=== PATIENT | female | born 1935 | race Two or more races ===

== ENCOUNTER 2018-09-07 13:18 | Outpatient (CLI) | payer MEDICARE, OTHER ==
[~2018-09-07] VITALS: Ht 152.4 cm; Wt 77.1 kg
[~2018-09-07 13:18] MED LIST: ASPIRIN-LOW81 MG ORAL; CALCIUM 500 MG1 EACH PO; COZAAR50 MG ORAL; CRESTOR10 M2 ORAL; PREVACID30 MG ORAL; SLOW-MAG64 MG PO; VITAMIN D1000 UNI1 ORAL
--- NOTE | 2018-09-07 15:16 | GI Initial Consult Note ---
History of Present Illness General Date patient seen: Sep 07, 2018 Time patient seen: 15:10 Referring physician: JESSICA Reason for Consultation: ELEVATED CEA Present Illness HPI This is a 82-year-old female patient, presents today with an elevated CEA level of 4.02. In addition the patient has complaint of weight loss which she contributes to the passing of her brother back in 2018. The patient denies any GI symptoms; denies any abdominal pain, nausea vomiting or diarrhea at this time. Patient has no history of endoscopic or colonoscopy. Denies any changes in dietary habits. No signs of abuse or neglect. Patient is not fall risk. Home Meds Reported Medications Magnesium Chloride (Slow-Mag) 64 Mg Tabcr, 64 MG PO DAILY, TAB 08/24/13 Cholecalciferol (Vitamin D3)* (VITAMIN D*) 1,000 Unit Tablet, 5000 UNITS ORAL ONCE A WEEK, TAB 0 Refills 08/24/13 Calcium Carb&Cit/Mag12/Vit D3 (CALCIUM 500 MG TABLET) 1 Each Tablet, 1 EACH PO DAILY, TAB 08/24/13 Aspirin (Aspirin EC) 81 Mg Tabec, 81 MG ORAL DAILY, TAB 08/24/13 Rosuvastatin Calcium* (CRESTOR*) 10 Mg Tablet, 10 MG ORAL DAILY, TAB 08/24/13 Losartan Potassium* (COZAAR*) 50 Mg Tablet, 50 MG ORAL DAILY, TAB 08/24/13 Lansoprazole* (PREVACID*) 30 Mg Capsule.dr, 30 MG ORAL DAILY, CAP 08/24/13 Med list reviewed/reconciled: Yes Allergies: Coded Allergies: NO KNOWN ALLERGIES (Unverified Allergy, 08/23/13) Patient History History Provided By: Patient, Medical Record [facility] Narrative GERD Asthma Arthritis Sciatic pain Back pain Hypertension Hyperlipidemia Past surgical history Bilateral cataract surgery Vaginal prolapse? Pertinent Family History: none Social History: Denies: smoking, alcohol use, drug use, other Review of Systems All Other Systems: negative except mentioned in HPI Physical Exam Temperature 97.6 Blood pressure 116/66 Pulse of 63 90% room air Height 5 0 Weight 170 pounds Sp02 EP Interpretation: reviewed, normal General Appearance: well appearing, no apparent distress, alert Head: normocephalic EENT: PERRL/EOMI, normal ENT inspection Neck: supple Respiratory: normal breath sounds, no respiratory distress Cardiovascular: normal rate Gastrointestinal: normal inspection, non tender, soft, normal bowel sounds, non -distended Rectal: deferred Genitourinary: no CVA tenderness Musculoskeletal: normal inspection, back normal Neurologic: normal inspection, alert, oriented x3, responsive Psychiatric: normal inspection, judgement/insight normal, memory normal Skin: normal inspection, normal color, no rash, warm/dry, palpation normal, well hydrated Lymphatic: normal inspection, no adenopathy GI: Plan Problems: (1) GERD (gastroesophageal reflux disease) (2) Elevated CEA (3) Colonoscopy planned (4) Weight loss (5) Asthma (6) Arthritis (7) Sciatic pain (8) Hypertension (9) Hyperlipidemia Plan EGD/colonoscopy to be scheduled September 11, 2017 - CLD & (Nulytely/Suprep/Movi-Prep) prep instructions given and acknowledged by patient. - NPO @ [place] day prior procedure explained. Will follow with additional recs post procedure. Seen with Dr. Giordano. Thank you for this patient referral. The patient was seen and examined at bedside and all new and available data was reviewed in the patients chart. I agree with the above findings, impression and plan. (Patient seen earlier today. Signature stamp does not reflect patient encounter time.). - MD Anny Rodríguez AnhLisa NICKEL PLATER Sep 07, 2018 15:16
[2018-09-07 15:44] VITALS: BP 116/66
== END 2018-09-07 15:18 | disposition home or self-care (01) ==
LOC: PAN 13:18
DX: R97.0 Elevated carcinoembryonic antigen [CEA] (principal); K21.9 Gastro-esophageal reflux disease without esophagitis; R63.4 Abnormal weight loss; J45.909 Unspecified asthma, uncomplicated; M19.92 Post-traumatic osteoarthritis, unspecified site; M54.30 Sciatica, unspecified side; I10 Essential (primary) hypertension; E78.5 Hyperlipidemia, unspecified
CPT/HCPCS: 99202

== ENCOUNTER 2018-09-11 07:47 | Day surgery (SDC) | payer MEDICARE, OTHER ==
[2018-09-11] VITALS (9 sets, daily range): BP systolic 129–194; BP diastolic 74–109
[~2018-09-11] VITALS: Ht 157.5 cm; Wt 77.1 kg
[2018-09-11] MEDS ORDERED: Lidocaine 1% MPF 10mg/ml 5ml ONE (09:00)
[2018-09-11] MEDS ORDERED: LR 1000ml ONE (09:00)
[2018-09-11] MEDS ORDERED: Propofol 200mg/20ml IV ONE (09:00)
[2018-09-11] MEDS ORDERED: LR 1000ml 1,000 ML IVLG SCH (09:01)
--- NOTE | 2018-09-11 09:02 | Pre-Procedure Note/Attestation ---
Pre-Procedure Note/Attestation Complete Prior to Procedure Planned Procedure: not applicable Procedure Narrative: egd/colonoscopy Indications for Procedure Pre-Operative Diagnosis: screening colon, GERD Attestation I attest that I discussed the nature of the procedure; its benefits; risks and complications; and alternatives (and the risks and benefits of such alternatives ), prior to the procedure, with the patient (or the patient's legal sales representative health insurance). I attest that, if there was a reasonable possibility of needing a blood transfusion, the patient (or the patient's legal sales representative health insurance) was given the [facility] standardized written summary, pursuant to the Teddy Shad Blood Safety Act ([place] Health and Safety Code # 1645, as amended). I attest that I re-evaluated the patient just prior to the surgery and that there has been no change in the patient's H&P, except as documented below: Usman Giordano MD Sep 11, 2018 09:02
--- NOTE | 2018-09-11 09:02 | Short Stay Surgery H&P ---
History of Present Illness History of Present Illness Chief Complaint see recent office note HPI Francia Barnes is a 82 year old female who was admitted on for Abdominal Pain Patient History Allergies: Coded Allergies: NO KNOWN ALLERGIES (Unverified Allergy, 08/23/13) Medication History Scheduled Aspirin (Aspirin EC), 81 MG ORAL DAILY, (Reported) Cholecalciferol (Vitamin D3)* (Vitamin D*), 5,000 UNITS ORAL ONCE A WEEK, ( Reported) Lansoprazole* (Prevacid*), 30 MG ORAL DAILY, (Reported) Losartan Potassium* (Cozaar*), 50 MG ORAL DAILY, (Reported) Rosuvastatin Calcium* (Crestor*), 10 MG ORAL DAILY, (Reported) Discontinued Medications Calcium Carb&Cit/Mag12/Vit D3 (Calcium 500 Mg Tablet), 1 EACH PO DAILY, ( Reported) Discontinued Reason: Pt stopped taking med Magnesium Chloride (Slow-Mag), 64 MG PO DAILY, (Reported) Discontinued Reason: Pt stopped taking med Physical Exam Vital Signs Last Vital Signs Date Time Temp Pulse Resp B/P (MAP) Pulse Ox O2 Delivery O2 Flow Rate FiO2 09/11/18 08:21 Room Air 09/11/18 08:19 98.1 69 18 129/74 97 Plan Attestation Are the patient's medical conditions optimized for surgery? Usman Giordano MD Sep 11, 2018 09:02
[2018-09-11] MEDS ORDERED: Ketorolac 30mg Inj IV PRN ×2 (09:15)
[2018-09-11] MEDS ORDERED: Meperidine 50mg/ml Inj(FOR RIGORS ONLY) IVP PRN (09:15)
[2018-09-11] MEDS ORDERED: Midazolam 2mg/2ml Inj IVP PRN (09:15)
[2018-09-11] MEDS ORDERED: HYDROcodone/Acetamin 5/325 tab ORAL PRN (09:15)
[2018-09-11] MEDS ORDERED: oxyCODONE HCL/Acetaminophen 5/325mg ORAL PRN (09:15)
[2018-09-11] MEDS ORDERED: HYDROcodone/Acetamin 7.5/325 tab ORAL PRN (09:15)
[2018-09-11] MEDS ORDERED: DiphenhydrAMINE 50mg/ml Inj IVP PRN (09:15)
[2018-09-11] MEDS ORDERED: Hydromorphone 0.5mg/0.5ml inj IVP PRN (09:15)
[2018-09-11] MEDS ORDERED: Metoclopramide 10mg/2ml Inj IVP PRN (09:15)
[2018-09-11] MEDS ORDERED: fentaNYL 100 mcg/2 mL IV PRN (09:15)
[2018-09-11] MEDS ORDERED: LORazepam Inj 2mg/ml 1ml IV PRN (09:15)
[2018-09-11] MEDS ORDERED: Atropine Sulfate 0.4mg/ml inj IVP PRN (09:15)
--- NOTE | 2018-09-11 09:23 | Anethesia Preoperative Eval ---
Anesthesia Pre-op PMH/ROS General Date of Evaluation: Sep 11, 2018 Time of Evaluation: 08:41 Anesthesiologist: Fina ASA Score: ASA 3 Mallampati Score Class I : Soft palate, uvula, fauces, pillars visible Class II: Soft palate, uvula, fauces visible Class III: Soft palate, base of uvula visible Class IV: Only hard plate visible Mallampati Classification: Class II Surgeon: Pasquale Diagnosis: Abd Pain Surgical Procedure: EGD/Colonoscopy Anesthesia History: none Family History: no anesthesia problems Allergies: Coded Allergies: NO KNOWN ALLERGIES (Unverified Allergy, 08/23/13) Medications: see eMAR Patient NPO?: Yes Past Medical History Cardiovascular: Reports: HTN, other - HL Pulmonary: Reports: asthma Gastrointestinal/Genitourinary: Reports: GERD HEENT: Reports: cataract (L), cataract (R) Other: obesity - BMI 32 Anesthesia Pre-op Phys. Exam Physician Exam Last Vital Signs Date Time Temp Pulse Resp B/P (MAP) Pulse Ox O2 Delivery O2 Flow Rate FiO2 09/11/18 08:21 Room Air 09/11/18 08:19 98.1 69 18 129/74 97 Constitutional: NAD Neurologic: CN 2-12 intact Cardiovascular: RRR Respiratory: CTA Gastrointestinal: S/NT/ND Airway Exam Mallampati Score: Class II MO: full ROM: limited Teeth: missing, intact Anesthesia Pre-op A/P Risk Assessment & Plan Assessment: ASA 3 Plan: GA Status Change Before Surgery: Barry Lima MD Sep 11, 2018 09:23
--- NOTE | 2018-09-11 09:24 | Immediate Post-Op Evaluation ---
Immediate Post-Op Evalulation Immediate Post-Op Evalulation Procedure: EGD/Colonoscopy Date of Evaluation: Sep 11, 2018 Time of Evaluation: 09:58 IV Fluids: 100 NS Blood Products: 0 Estimated Blood Loss: 1 Urinary Output: 0 Blood Pressure Systolic: 194 Blood Pressure Diastolic: 109 Pulse Rate: 78 Respiratory Rate: 16 O2 Sat by Pulse Oximetry: 97 Temperature (Fahrenheit): 97.9 Pain Score (1-10): 2 Nausea: No Vomiting: No Complications 0 Patient Status: awake, reacts, patent, none Hydration Status: adequate Barry Harden MD Sep 11, 2018 09:24
--- NOTE | 2018-09-11 09:25 | 48 Hour Post Anesthesia Eval ---
Post Anesthesia Evaluation Procedure: EGD/Colonoscopy Date of Evaluation: Sep 11, 2018 Time of Evaluation: 12:03 Blood Pressure Systolic: 157 0: 89 Pulse Rate: 79 Respiratory Rate: 18 Temperature (Fahrenheit): 98.2 O2 Sat by Pulse Oximetry: 96 Airway: patent Nausea: No Vomiting: No Pain Intensity: 2 Hydration Status: adequate Cardiopulmonary Status: Stable Mental Status/LOC: patient returned to baseline Follow-up Care/Observations: 0 Post-Anesthesia Complications: 0 Follow-up care needed: ready to discharge Barry Harden MD Sep 11, 2018 09:25
--- NOTE | 2018-09-11 09:38 | Endoscopy Procedure Note ---
Endoscopy Procedure Note General Indication for Procedure: screening colon, GERD Procedures Performed: EGD, colonoscopy Operative Findings/Diagnosis: gastritis, 3 polyps Specimen: yes Pt Tolerated Procedure Well: Yes Estimated Blood Loss: none Anesthesia Anesthesiologist: Macie Anesthesia: MAC Inserted Devices Implant(s) used?: No Quality Quality of Bowel Preparation: Good Did scope reach the cecum?: Yes Was there any complications?: No GI Core Measures 50 yrs or older w/o bx or poly: No 10yrs. F/U not recommended: Yes If not recommended, why?: Above average risk 10 yrs. F/U needed: Yes 18 years or older w/prev. colo: No Usman Giordano MD Sep 11, 2018 09:38
--- NOTE | 2018-09-11 16:30 | Procedure Note ---
DATE OF PROCEDURE: 09/11/2018 SURGEON: Usman Giordano M.D. PROCEDURE: Upper endoscopy with biopsy and colonoscopy with biopsy. ANESTHESIA: Per Dr. Harden. INSTRUMENT: Olympus adult flexible endoscope and colonoscope. INDICATION: 1. Screening colonoscopy evaluation. 2. Abdominal pain. 3. Chronic GERD. REASON FOR PROCEDURE: The procedure, risks, benefits, and possible consequences, including hemorrhage, aspiration, perforation and infection, and alternative treatments, were explained to the patient/legal guardian by Dr. Usman Giordano and the patient/legal guardian understood and accepted these risks. PROCEDURE IN DETAIL: After informed consent was obtained and the patient was adequately sedated, Olympus upper endoscope was advanced from the mouth to the second portion of the duodenum and retroflexion was performed in the stomach. The patient has diffuse gastritis. Random biopsy from body and antrum was obtained to rule out H. pylori infection. Otherwise, the rest of upper endoscopic examination grossly within normal limits. At this time, the upper endoscope was retrieved. The patient was turned over for colonoscopy. First, rectal exam was performed which was positive for internal hemorrhoids. Then, the scope was advanced from the rectum into the cecum documented by the appendiceal orifice, ileocecal valve, and right upper quadrant palpation. Quality of prep was very good. The patient had three colonic polyps, one in transverse, two in the rectosigmoid area, all were small, removed with the cold biopsy forceps technique. The patient had some scattered diverticulosis in the left colon. Retroflexion of the rectum showed evidence of medium-sized nonbleeding internal hemorrhoids. SUMMARY OF FINDINGS: 1. Gastritis, status post biopsy. 2. Three colonic polyps removed, see above for details. 3. Diverticulosis. 4. Internal hemorrhoids. RECOMMENDATIONS: 1. Follow up pathology. 2. Given 3 polyps, we recommend repeat colonoscopy in three years. I want to thank, Dr. Usman Cedillo, for this kind referral. Usman Giordano M.D. DR: Nancy JOB#: [id number] CC: Usman Cedillo M.D.; Fax#: [phone]
== END 2018-09-11 12:35 | disposition home or self-care (01) ==
LOC: GAS 07:47
DX: Z12.11 Encounter for screening for malignant neoplasm of colon (principal); R10.9 Unspecified abdominal pain; K21.9 Gastro-esophageal reflux disease without esophagitis; Z79.82 Long term (current) use of aspirin; I10 Essential (primary) hypertension; K57.90 Diverticulosis of intestine, part unspecified, without perforation or abscess without bleeding; K63.5 Polyp of colon; K64.8 Other hemorrhoids; K29.50 Unspecified chronic gastritis without bleeding; D12.3 Benign neoplasm of transverse colon
CPT/HCPCS: 43239; 45380; 93005; J2704; 94003; 94150

== ENCOUNTER 2018-09-30 13:05 | Outpatient (CLI) | payer MEDICARE, OTHER ==
--- NOTE | 2018-09-30 15:00 | General Progress Note ---
Assessment/Plan Problem List: (1) Constipation ICD Codes: K59.00 - Constipation, unspecified SNOMED: 29064460 (2) Colonic polyp ICD Codes: K63.5 - Polyp of colon SNOMED: 14266357 (3) GERD (gastroesophageal reflux disease) ICD Codes: K21.9 - Gastro-esophageal reflux disease without esophagitis SNOMED: 019917375 (4) Asthma ICD Codes: J45.909 - Unspecified asthma, uncomplicated SNOMED: 538306467 (5) Elevated CEA ICD Codes: R97.0 - Elevated carcinoembryonic antigen [CEA] SNOMED: 310783512 (6) Hypertension ICD Codes: I10 - Essential (primary) hypertension SNOMED: 01174439 Assessment/Plan add low dose linzess repeat colon in 3 years Subjective ROS Limited/Unobtainable: Yes Allergies: Coded Allergies: NO KNOWN ALLERGIES (Unverified Allergy, 08/23/13) Objective General Appearance: alert EENT: normal ENT inspection Neck: supple Cardiovascular: normal rate Respiratory/Chest: lungs clear Abdomen: normal bowel sounds, non tender, soft Extremities: non-tender Usman Giordano MD Sep 30, 2018 15:00
[2018-09-30 15:51] VITALS: BP 114/56
[2018-10-02] MEDS ORDERED: LINZESS 72 MCG ORAL (15:50)
== END 2018-09-30 15:05 | disposition home or self-care (01) ==
LOC: PAN 13:05
DX: K59.00 Constipation, unspecified (principal); K63.5 Polyp of colon; K21.9 Gastro-esophageal reflux disease without esophagitis; J45.909 Unspecified asthma, uncomplicated; R97.0 Elevated carcinoembryonic antigen [CEA]; I10 Essential (primary) hypertension
CPT/HCPCS: 99212